=== PATIENT | male | born 1945 | race Caucasian/White ===

== ENCOUNTER 2024-04-20 14:33 | Inpatient (IN) | payer MEDICARE, OTHER ==
[2024-04-20 15:10] VITALS: BMI 24.2
[2024-04-20] MEDS ORDERED: Calcium Carbonate 500 MG ChewTAB PO PRN (15:32)
[2024-04-20] MEDS ORDERED: Ondansetron PF 4 MG/2 ML Vial IVP PRN (15:32)
[2024-04-20] MEDS ORDERED: Acetaminophen 325 MG TAB PO PRN (15:32)
[2024-04-20] MEDS ORDERED: HYDROcodone/Acetaminophen 5/325 mg Tablet PO PRN (15:32)
[2024-04-20] MEDS ORDERED: Ipratropium/Albuterol 3 ML NEB NEB PRN (15:37)
[2024-04-20] MEDS ORDERED: guaiFENesin/Codeine Phosphate 100 mg/10 mg 5 ml UD Cup PO PRN (15:41)
[2024-04-20] MEDS: Sodium Chloride 0.9% 1,000 ML IV SCH (16:43)
[2024-04-20 17:44] LABS: Strep pneumo Urine Ag NEGATIVE (NEGATIVE)
[2024-04-20] MEDS: Enoxaparin 40 MG (0.4 mL) SYRINGE SC SCH (20:52)
[2024-04-20] MEDS: Atorvastatin Calcium 40 MG TAB PO SCH (20:53)
[2024-04-20] MEDS: Famotidine 20 MG TAB PO SCH (20:53)
[2024-04-20] MEDS: Azithromycin 500 MG in Sodium Chloride 0.9% 250 ML 250 ML IVPB SCH (20:53)
[2024-04-20] MEDS: guaiFENesin ER 600 MG TAB PO SCH (20:53)
[2024-04-21 05:04] LABS: Anion Gap 10 mmol/L (10-20); BUN (Urea Nitrogen) 13 mg/dL (8.4-25.7); Calc. Creatinine Clearance 90 mL/min (70-130); Calcium 8.2 mg/dL (7.8-10.44); Carbon Dioxide 21 mmol/L (23-31); Chloride 109 mmol/L (98-107); Estimated GFR 89; Glucose 96 mg/dL (83-110); Sodium 136 mmol/L (136-145)
[2024-04-21 05:10] LABS: #Basophils 0.02 10x3/uL (0.0-0.2); #Eosinphils 0.09 10x3/uL (0.0-0.5); #Monocytes 0.61 10x3/uL (0.0-1.1); #Neutrophils 11.43 10x3/uL (1.5-8.4); %Basophils 0.1 % (0.0-2.0); %Eosinophils 0.7 % (0.0-6.0); %Lymphocytes 10.5 % (18.0-47.0); %Monocytes 4.4 % (0.0-10.0); %Neutrophils 83.2 % (40.0-75.0); Hematocrit 36.6 % (38.8-50.0); Hemoglobin 12.8 g/dL (13.5-17.5); Mean Corpuscular Volume 91.5 fl (81.2-95.1); Mean Platelet Volume 10.5 fl (7.4-10.4); Platelet Count 161 10x3/uL (150-450); RBC Distribution Width 13.1 % (11.5-14.5); White Blood Cell (WBC) Count 13.7 10x3/uL (3.5-10.5)
[2024-04-21] MEDS: Aspirin 81 mg Enteric Coated Tablet PO SCH (09:20)
[2024-04-21] MEDS: Tamsulosin HCl 0.4 MG CAP PO SCH (09:20)
[2024-04-21] MEDS: Clopidogrel Bisulfate 75 MG TAB PO SCH (09:21)
[2024-04-21] MEDS ORDERED: Iopamidol 300 61% 100 ML VIAL FS ONE (11:04)
[2024-04-21] MEDS: cefTRIAXone\\ROCEPHIN 2 GM in Sodium Chloride 0.9% 100 ML IVPB SCH (12:04)
[2024-04-22 03:20] LABS: #Basophils 0.02 10x3/uL (0.0-0.2); #Eosinphils 0.21 10x3/uL (0.0-0.5); #Monocytes 0.62 10x3/uL (0.0-1.1); #Neutrophils 6.58 10x3/uL (1.5-8.4); %Basophils 0.2 % (0.0-2.0); %Eosinophils 2.3 % (0.0-6.0); %Lymphocytes 16.9 % (18.0-47.0); %Monocytes 6.9 % (0.0-10.0); %Neutrophils 73.3 % (40.0-75.0); Hematocrit 37.4 % (38.8-50.0); Hemoglobin 12.9 g/dL (13.5-17.5); Mean Corpuscular HGB CONC 34.5 g/dL (32.0-36.0); Mean Corpuscular Hemoglobin 31.6 pg (27.0-33.0); Mean Corpuscular Volume 91.7 fl (81.2-95.1); Mean Platelet Volume 11.1 fl (7.4-10.4); Platelet Count 151 10x3/uL (150-450); RBC Distribution Width 13.2 % (11.5-14.5); Red Blood Cell (RBC) Count 4.08 10x6/uL (4.32-5.72)
[2024-04-22 03:46] LABS: Anion Gap 12 mmol/L (10-20); BUN (Urea Nitrogen) 13 mg/dL (8.4-25.7); Calc. Creatinine Clearance 85 mL/min (70-130); Calcium 8.6 mg/dL (7.8-10.44); Carbon Dioxide 21 mmol/L (23-31); Chloride 108 mmol/L (98-107); Estimated GFR 87; Glucose 93 mg/dL (83-110); Potassium 4.2 mmol/L (3.5-5.1); Sodium 137 mmol/L (136-145)
[2024-04-22 05:16] VITALS: TEMP 97.8
[2024-04-22 08:26] VITALS: BP 142/62
[2024-04-23 22:37] LABS: L.pneumophilia Abs Non Reactive (Non Reactive)
== END 2024-04-22 10:14 | disposition home or self-care (01) | DRG 871 ==
LOC: CSHTELE 14:46
PROVIDERS: ADMIT Family Medicine; ATTEND Family Medicine
DX: A41.9 Sepsis, unspecified organism (principal); J15.9 Unspecified bacterial pneumonia; E78.5 Hyperlipidemia, unspecified; N40.0 Benign prostatic hyperplasia without lower urinary tract symptoms; J40 Bronchitis, not specified as acute or chronic; Z86.73 Personal history of transient ischemic attack (TIA), and cerebral infarction without residual deficits; Z79.82 Long term (current) use of aspirin; Z79.899 Other long term (current) drug therapy
CPT/HCPCS: 36415; 71260; 80048; 84145; 85025; 86713; 87449; J0456; J0696; J1650; J3490; J7050; Q9967